=== PATIENT | female | born 1955 | race Caucasian/White ===

== ENCOUNTER 2023-02-13 13:29 | Emergency (ER) | payer MEDICARE, SELFPAY ==
[2023-02-13 13:41] VITALS: BP 146/95; PULSE 101; RESP 18; TEMP 36.6; O2SAT 97; BMI 26.0
--- NOTE | 2023-02-13 13:57 | ED_ITS ---
HPI - Neck Pain/Injury General: Chief Complaint: Neck Pain/Injury Stated Complaint: neck pain,previous neck surgeries Time Seen by Provider: 02/13/23 13:53 Source: patient Mode of arrival: ambulatory Limitations: no limitations History of Present Illness: Patient is a 67-year-old female presents to ED today with a complaint of neck pain. She states approximately 6 weeks ago she accidentally ran into some type of fence pole and struck her face. She reports since then she has had neck pain. She reports 2 previous neck surgeries. She feels like the pain in her neck is worse with rotation and extension. She is reporting paresthesias to bilateral hands but has no complaints of paresthesias to her forearm or upper arms. No headache/facial pain. No back pain. MD complaint: neck pain and neck injury Onset (ago): week(s) Place: home Severity: moderate Relieving factors: none Exacerbating factors: movement of neck Context: direct blow Associated symptoms: Reports other (Bilateral hand paresthesias); Denies dizziness, headache(s) or nausea Treatments prior to arrival: none, acetaminophen and ibuprofen Review of Systems Const: Denies: fever(s), chills, body aches, fatigue or malaise Eyes: Denies: change in vision or blurry vision Card: Denies: chest pain, palpitations, irregular heart rhythm, lightheadedness, syncope or dyspnea on exertion Resp: Denies: dyspnea, productive cough or pain on inspiration GI: Denies: abdominal pain, nausea, vomiting, heartburn or diarrhea : Denies: dysuria Musc: Reports: neck pain and muscle weakness (bilateral UEs); Denies: back pain, extremity pain, extremity swelling, joint pain, joint swelling, joint redness, joint warmth, joint stiffness, limited range of motion, muscle cramps or decrease in muscle mass Skin/Breast: Denies: rash Neuro: Reports: sensory changes (bilateral hands); Denies: headache(s), numbness in extremities, weakness in extremities, dizziness, vertigo, confusion, behavioral changes or seizure-like activity Physical Exam Const: COMMON NORMALS: no acute distress, average body habitus, patient oriented x3, no limitations, healthy appearing, alert and well nourished GENERAL APPEARANCE: cooperative HENMT: COMMON NORMALS: normocephalic and atraumatic HEAD & SCALP: normocephalic and atraumatic Neck/C-Spine: COMMON NORMALS: no lymphadenopathy, supple, no meningeal signs, no JVD, Thyroid normal and No carotid bruits GENERAL: Yes normal visual inspection THYROID: Thyroid normal CERVICAL SPINE: Yes pain with cervical ROM with rotation to the right, with rotation to the left and with extension, No Cervical spine tenderness, No step off deformity, No Paracervical muscle tenderness, No Paracervical spasm and No Trapezius muscle tenderness Chest: COMMONS NORMALS: normal inspection of the chest Resp: COMMON NORMALS: normal respiratory effort and clear to auscultation bilaterally AUSCULTATION: clear to auscultation bilaterally Cardio: COMMON NORMALS: no JVD, regular rate and regular rhythm RATE: regular rate RHYTHM: regular rhythm GI: COMMON NORMALS: Normal to inspection, nondistended, normoactive bowel sounds present, Soft to palpation, non-tender, No hepatosplenomegaly present and no masses PALPATION: Yes Soft to palpation and Yes No hepatosplenomegaly present : COMMON NORMALS: Yes no CVA tenderness BLADDER/KIDNEY EXAM: Yes no CVA tenderness Back/Pelvis: COMMON NORMALS: no CVA tenderness, thoracic and lumbar spine normal to inspection and no thoracic nor lumbar tenderness Extremity: COMMON NORMALS: normal to inspection, full ROM, capillary refill normal, no joint enlargement, no clubbing, cyanosis or edema, no calf tenderness and no pedal edema Neuro: COMMON NORMALS: patient oriented x3 and moves all extremities SENSORIUM/ORIENTATION: Yes alert MENINGEAL SIGNS: Yes no meningeal signs SPEECH: speech normal MOTOR EXAM: Abnormal motor strength present (4/5 across all myotomes in bilateral UEs) DEEP TENDON REFLEXES: Right triceps reflex intensity grade: 2+, Left triceps reflex intensity grade: 2+, Rt Biceps (C5, C6): 2+, Left biceps reflex intensity grade: 2+, Right brachioradialis reflex intensity grade: 2+ and Left brachioradialis reflex intensity grade: 2+ OTHER: Reporting paresthesias to bilateral hands including all digits and volar/dorsal surfaces however patient does report she is able to feel light/firm touches on exam Skin: COMMON NORMALS: no rashes or lesions noted GENERAL SKIN EXAM: no rashes or lesions noted Course Vital Signs: Vital signs: Vital Signs Temperature 97.8 F 02/13/23 13:41 Pulse Rate 101 H 12/15/23 13:41 Respiratory Rate 18 02/13/23 13:41 Blood Pressure 146/95 02/13/23 13:41 Pulse Oximetry 97 02/13/23 13:41 Oxygen Delivery Me thod Room Air 02/13/23 13:41 MDM - Neck Pain/Injury Medical Decision Making Patient here for neck pain following an injury approximately 6 weeks ago. She is reporting some paresthesias to her bilateral hands but none to the remainder of the upper extremity. CT scan of her cervical spine is negative for acute f racture or injury. Nothing to suggest possible cord compression. Will place her on steroids and have her follow up with PCP. States she has an upcoming appointment in a few weeks. Return to ED precautions given. All radiology interpretation(s) finalized by discharge Discharge Plan Discharge Patient Disposition: Home Clinical Impression: Neck pain Condition: Stable Prescriptions: New Medrol (Goldy) 4 mg tablets,dose pack See Rx Instructions .ROUTE .COMPLEX Qty: 21 0RF Rx Instructions: orally per package directions No Action triamcinolone acetonide 0.1 % ointment 1 applic topical TID meloxicam 15 mg tablet 15 mg PO DAILY Qty: 90 3RF cyanocobalamin (vitamin B-12) 1,000 mcg/mL solution 1,000 mcg IM .every other month Patient Comments: inject 1ml IM every 60 days (DME) insulin syringe-needle U-100 [[facility]] 1 mL 30 gauge x 5/16 syringe See Rx Instructions .Route Qty: 10 0RF Rx Instructions: As directed sertraline 50 mg tablet 50 mg PO DAILY Qty: 90 1RF lorazepam 1 mg tablet 1 mg PO TID PRN (Reason: anxiety) Qty: 90 5RF zolpidem 10 mg tablet 10 mg PO BEDTIME PRN (Reason: sleep) Discharge Orders: Discharge ED (Routine); Ordered 02/13/23 Ordered By: Maria Ines Gan Referrals: Adi Hall DO [Primary Care Provider] - Coding Level of Care Code ED Reception Interviewer for Gabyg Thea
--- NOTE | 2023-02-13 14:16 | CT_ITS ---
WS: [id number] CT cervical spine. Additional two-dimensional coronal and sagittal reconstruction was performed. 01/30 Clinical Data: pain, paresthesias Comparison: CT cervical spine 05/02/2011 DLP: 165.[address] scans at [facility] use at least one of these dose optimization techniques: automated e xposure control; mA and/or kV adjustment per patient size (includes targeted exams where dose is matc hed to clinical indication); or iterative reconstruction. Findings: There is an anterior cervical disc fusion at C5-C7 with corpectomy at the C6 vertebral body. There is an additional anterior cervical disc fusion at C4-C5 with obliteration of the disc space. No cyndi all fractures are seen. 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 There are no cyndi all fractures. There is loss of the normal lordotic curvature. There is no prevertebral soft tissue swelling. Spinous processes are in good alignment. Impression: 1. Negative for cervical spine fracture. 2. Stable anterior cervical disc fusions at C3-C4 and C5-C7. 3. Loss of normal lordotic curvature.
[2023-02-13 16:09] VITALS: BP 151/87; PULSE 106; O2SAT 97
== END 2023-02-13 16:12 | disposition home or self-care (01) ==
PROVIDERS: Emergency Provider Physician Assistant; PCP Family Medicine
DX: M54.2 Cervicalgia (principal); Z79.4 Long term (current) use of insulin
CPT/HCPCS: 72125; 99284

== ENCOUNTER 2023-03-06 11:58 | Outpatient (CLI) | payer MEDICARE, SELFPAY ==
--- NOTE | 2023-03-06 12:15 | MR_ITS ---
WS: [id number] MRI HEAD WITHOUT CONTRAST TECHNIQUE: Sagittal T1, T2 axial, T2 axial FLAIR, axial and coronal T1 images, axial susceptibility w eighted imaging, axial diffusion weighted images, and coronal T2 images were obtained. CLINICAL INFORMATION: F07.81 - Postconcussional syndrome COMPARISON: CT 2013 FINDINGS: No evidence of restricted diffusion to suggest acute ischemia. Ventricular system and basilar cistern s are patent. Mild small vessel changes. Mild parenchymal volume loss. Small vessel changes in the po ns. Tiny chronic lacunar infarct RIGHT strong radiata. Normal vascular flow voids at the skull base. No extra-axial fluid collections. Paranasal sinuses are well aerated. Mastoid air cells are well aera maricarmen. Normal posterior nasopharynx. No hemosiderin on the susceptibly weighted images. Normal optic chiasm and pituitary infundibulum. Mi ld symmetric atrophy temporal lobes and hippocampal formations. No other suspicious findings. IMPRESSION: 1. No evidence of restricted diffusion to suggest acute ischemia. 2. Mild small vessel changes. Mild parenchymal volume loss. 3. Small vessel changes in the christy. 4. No hemosiderin on susceptibly weighted images. 5. Mild symmetric atrophy temporal lobes and hippocampal formations.
== END 2023-03-06 11:59 | disposition home or self-care (01) ==
LOC: RAD 12:00
PROVIDERS: PCP Family Medicine; Visit Provider Family Medicine
DX: S09.90XA Unspecified injury of head, initial encounter (principal); X58.XXXA Exposure to other specified factors, initial encounter; F07.81 Postconcussional syndrome
CPT/HCPCS: 70551

== ENCOUNTER → 2023-04-09 07:47 | Outpatient (BNVA) | payer MEDICARE, SELFPAY | PROVIDERS: PCP Family Medicine; Visit Provider Psychiatry & Neurology Neurology | DX: G95.9 Disease of spinal cord, unspecified (principal); M54.2 Cervicalgia; R53.1 Weakness; Z98.1 Arthrodesis status; R68.89 Other general symptoms and signs; R20.0 Anesthesia of skin; R20.2 Paresthesia of skin; M62.838 Other muscle spasm | CPT/HCPCS: 99203 ==

== ENCOUNTER 2023-06-04 14:13 | Outpatient (RCR) | payer MEDICARE, SELFPAY | END 2023-06-30 23:59 | disposition home or self-care (01) | LOC: SPT 14:13 | PROVIDERS: PCP Family Medicine; Visit Provider Physician Assistant | DX: Z98.1 Arthrodesis status (principal) | CPT/HCPCS: 97110; 97161; G0283 ==

== ENCOUNTER 2023-07-01 06:00 | Outpatient (RCR) | payer MEDICARE, SELFPAY | END 2023-07-31 23:59 | disposition home or self-care (01) | LOC: SPT 06:00 | PROVIDERS: PCP Family Medicine; Visit Provider Physician Assistant | DX: Z98.1 Arthrodesis status (principal) | CPT/HCPCS: 97110 ==

== ENCOUNTER → 2023-07-13 12:51 | Outpatient (BNVA) | payer MEDICARE, SELFPAY | PROVIDERS: PCP Family Medicine; Visit Provider Family Medicine | DX: E53.8 Deficiency of other specified B group vitamins (principal); R27.8 Other lack of coordination; G95.9 Disease of spinal cord, unspecified; R53.1 Weakness; E03.9 Hypothyroidism, unspecified | CPT/HCPCS: 80053; 82607; 83735; 84443; 85025 ==

== ENCOUNTER → 2023-07-24 10:51 | Outpatient (BNVA) | payer MEDICARE, SELFPAY | PROVIDERS: PCP Family Medicine; Visit Provider Family Medicine | DX: D64.9 Anemia, unspecified (principal) | CPT/HCPCS: 80503; 82728; 83550; 85025; 85045 ==

== ENCOUNTER 2023-08-01 06:00 | Outpatient (RCR) | payer MEDICARE, SELFPAY | END 2023-08-24 23:59 | disposition home or self-care (01) | LOC: SPT 06:00 | PROVIDERS: PCP Family Medicine; Visit Provider Physician Assistant | DX: Z98.1 Arthrodesis status (principal) | CPT/HCPCS: 97110 ==

== ENCOUNTER 2023-08-05 13:34 | Outpatient (CLI) | payer MEDICARE, SELFPAY ==
--- NOTE | 2023-08-05 13:45 | MR_ITS ---
WS: [id number] MRI HEAD WITH CONTRAST TECHNIQUE: Sagittal T1, T2 axial, T2 axial FLAIR, axial susceptibility weighted imaging, axial diffus ion weighted images, and coronal T2 images were obtained. Pre and post-T1 axial and post T1 coronal i mages. ADC and FSPGR images. CLINICAL INFORMATION: R27.8 - Other lack of coordination COMPARISON: MRI 03/06/2023 FINDINGS: No evidence of restricted diffusion to suggest acute ischemia. Ventricular system and basal cisterns are patent. Mild small vessel changes. Mild parenchymal volume loss. Small vessel changes in the christy . No hemosiderin on the susceptibly weighted images. Normal optic chiasm and pituitary infundibulum. Small cysts in the RIGHT parahippocampal gyrus unchanged from previous compatible with incidental hip pocampal sulcal remnant cysts. Normal vascular flow voids at the skull base. No extra-axial fluid collections. No evidence of mass o r mass effect. Normal posterior nasopharynx. Paranasal sinuses are well aerated. Mild symmetric atrophy temporal lobes and hippocampal formations. No abnormal gadolinium enhancement. Normal dural venous sinuses. Suggestion of a small RIGHT MCA trifurcation aneurysm measuring 3.5 mm. This can be further evaluated with CTA or MRA. MR/MR head wo/w con [id number] IMPRESSION: 1. No evidence of restricted diffusion to suggest acute ischemia. 2. Mild small vessel changes with mild parenchymal volume loss. 3. Small vessel changes in the christy. 4. Suggestion of a possible small RIGHT MCA trifurcation aneurysm measuring 3. 5 mm. This could be further evaluated with CTA or MRA 5. 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 6. No abnormal gadolinium enhancement. 7. No hemosiderin on the susceptibly weighted images. 8. Overall no significant changes compared to previous.
== END 2023-08-05 13:35 | disposition home or self-care (01) ==
LOC: RAD 13:34
PROVIDERS: PCP Family Medicine; Visit Provider Family Medicine
DX: R27.8 Other lack of coordination (principal); R53.1 Weakness; G93.0 Cerebral cysts
CPT/HCPCS: 70553; A9577

== ENCOUNTER → 2023-08-18 13:56 | Outpatient (CLI) | payer MEDICARE, SELFPAY ==
--- NOTE | 2023-08-18 14:00 | MR_ITS ---
WS: [id number] MRA HEAD TECHNIQUE: Axial 3-D TOF images obtained with axial images and axial, sagittal, and coronal 2-D refor matted images. CLINICAL INFORMATION: right mca suggestion of aneursym on recent MRI of head COMPARISON: MRI 08/05/2023 FINDINGS: RIGHT MCA trifurcation aneurysm directed laterally and superiorly measuring approximately 4.0 mm. Rec ommend neurosurgery consultation. Dominant distal LEFT vertebral artery. Smaller but patent distal RIGHT vertebral artery. Basilar mirta ry is patent. Normal vascularity to the [employer] territory bilaterally. Both ICAs are patent at the skull base. Patent anterior communicating artery. Small RIGHT A1 segment. Normal vascularity to the FRANC[place] territory. Both ICAs are patent at the skull base. Normal vascularity to the MCA territories bilaterally. No evidence of proximal flow-limiting stenosis. MR/MR angio head wo con [id number] IMPRESSION: 1. 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 Recommend neurosurgery co nsultation. 2. No evidence of proximal flow-limiting stenosis.
== END | disposition home or self-care (01) ==
LOC: RAD 13:57
PROVIDERS: PCP Family Medicine; Visit Provider Family Medicine
DX: I67.1 Cerebral aneurysm, nonruptured (principal)
CPT/HCPCS: 70544

== ENCOUNTER 2023-10-24 16:17 | Emergency (ER) | payer MEDICARE, SELFPAY ==
[2023-10-24 16:24] VITALS: BP 168/76; PULSE 67; RESP 16; TEMP 36.7; O2SAT 98
--- NOTE | 2023-10-24 16:59 | W.ED.NECK ---
Documented by User: RG Robertson 10/24/23 19:55 HPI - Neck Pain/Injury General: Chief Complaint: Neck Pain/Injury Stated Complaint: Severe neck pain, hands and arms Time Seen by Provider: 10/24/23 16:34 Source: patient Mode of arrival: ambulatory Limitations: no limitations History of Present Illness: Patient presents emergency department today for evaluation treatment of acute worsening of chronic neck pain and cervical radiculopathy. Patient states that several days ago she was [place] [employer] [place] quite a bit of swimming. She admits it is more physical activity than she is used to. She noticed later that day stiffening of the neck which acutely worsened the next day and has continued since that time. Patient has chronic neuropathy and has had multiple neck surgeries including fusion of C3 and C4 as well as C5-C7. Patient has also had a corpectomy at C6 in the past. Patient's chart review shows that she has been seen in the past for acute worsening of chronic neck pain here in the emergency department. She has had multiple rounds of imaging on her neck with her most recent imaging being a couple weeks ago where she had x-rays taken. Since April, patient has been followed by Dr. Vale with neurosurgery at [facility] in [place]. 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 She reports undergoing an angio of her brain recently but, they did not repair the aneurysm. She is supposed to have an appointment next month to discuss her options . Patient states that from a cervical spine perspective, she was told a few weeks ago that she was released and could follow-up as needed. Patient has pain medication at home including narcotics, NSAID, muscle relaxer, and Lyrica. She states that her blood pressure drops too low when she takes muscle relaxer but, did take 1 today for her pain but did not notice any improvement. She admits to having Ativan but does not hardly take it. She admits that there is a component of increased anxiety over the last few days due to her pain but, did not take her Ativan for her symptoms. Patient states she is having headache but, states it is originating from the musculature in her neck and wrapping up the back of her head to the front. Patient does have a medical background and states her headache does not feel any way related to aneurysmal pains or concerns. Patient has not been running fever. She has not been vomiting. Patient drove herself from home to the emergency department and ambulated independently inside. Related Data Home Medications Medication Instructions Recorded Confirmed triamcinolone acetonide 0.1 % 1 applic topical TID 11/28/21 06/30/23 topical ointment Previous Rx's Medication Instructions Recorded insulin syringe-needle U-100 1 mL #10 ea 02/11/22 30 gauge x 5/16 ([facility] Syringes) meloxicam 15 mg tablet 15 mg PO DAILY #90 tabs 02/11/22 sertraline 50 mg tablet 50 mg PO DAILY anxiety/depression 01/07/23 #90 tabs tizanidine 6 mg capsule 6 mg PO TID PRN muscle spasticity 04/09/23 #180 caps cyanocobalamin (vitamin B-12) See Rx Instructions IM ONCE #10 mL 05/29/23 1,000 mcg/mL injection solution needles/syringes for b12 injection #10 ea 05/29/23 hydrocodone 5 mg-acetaminophen 325 1 tab PO Q4H PRN pain 10 days #30 06/22/23 mg tablet tabs pregabalin 75 mg capsule (Lyrica) 75 mg PO BID neuropathy pain #60 07/20/23 caps lorazepam 1 mg tablet 1 mg PO TID PRN anxiety #90 tabs 07/22/23 ferrous sulfate 324 mg (65 mg 324 mg PO DAILY anemia #30 tabs 09/25/23 iron) tablet,delayed release zolpidem 10 mg tablet 10 mg PO BEDTIME PRN sleep #30 tabs 10/19/23 methylprednisolone 4 mg tablets in See Rx Instructions PO .COMPLEX 10/24/23 a dose pack #21 ea Allergies Allergy/AdvReac Type Severity Reaction Status Date / Time No Known Allergies Allergy Verified 10/24/23 16:29 Review of Systems General: Reports: 10 or more systems reviewed and unremarkable except in HPI and below PFSH ED PFSH: Social History Smoking and tobacco/nicotine status: former use of tobacco/nicotine Alcohol intake: never Substance/Drug Use: never Physical Exam Const: COMMON NORMALS: patient oriented x3 and alert OTHER: Patient presents anxious, borderline tearful and obviously uncomfortable. HENMT: COMMON NORMALS: normocephalic, atraumatic and hearing grossly normal bilaterally HEAD & SCALP: normocephalic and atraumatic Eye: COMMON NORMALS: Equal, round and reactive pupils present, EOMs intact bilaterally and conjunctivae normal CONJUNCTIVA: Yes conjunctivae normal PUPIL: Yes Equal, round and reactive pupils present Neck/C-Spine: OTHER: Patient has significant muscular stiffening of the paravertebral musculature in the cervical vertebral region with bilateral superior shoulder tension. Reproducible pain with palpation to this musculature. Patient has a well-healed surgical incision in the midline cervical region. Lymph: LYMPHATIC: no lymphadenopathy noted Resp: COMMON NORMALS: normal respiratory effort, No retractions and No use of accessory muscles Cardio: COMMON NORMALS: regular rate RATE: regular rate Back/Pelvis: OTHER: Demonstrates forward flexion of thoracic and lumbar vertebrae. Nontender to midline palpation of the lumbar vertebrae with some tenderness developing in the musculature around T2/T3 and extending up the paravertebral musculature of the cervical vertebrae. Extremity: NARRATIVE EXTREMITY EXAM: Patient with limited range of motion at the shoulders bilaterally. Unable to raise her hands above her head. Brisk cap refill. Patient still able to grasp and hold items. Neuro: COMMON NORMALS: patient oriented x3 SENSORIUM/ORIENTATION: Yes alert OTHER: Dulled sensations in fingers bilaterally. Psych: COMMON NORMALS: mental status grossly normal, Normal thought process present, cooperative and normal affect THOUGHT PROCESS: Normal thought process present Skin: COMMON NORMALS: no rashes or lesions noted and turgor normal GENERAL SKIN EXAM: no rashes or lesions noted and turgor normal Course Vital Signs: Vital signs: Vital Signs Temperature 98.0 F 10/24/23 18:40 Pulse Rate 61 10/24/23 18:40 Respiratory Rate 16 10/24/23 18:40 Blood Pressure 146/74 10/24/23 18:40 Pulse Oximetry 99 10/24/23 18:40 Oxygen Delivery Me thod Room Air 10/24/23 16:24 MDM - Neck Pain/Injury Medical Decision Making Patient presents emergency department for evaluation treatment of acute worsening of chronic neck pain and cervical radiculopathy. Patient was complaining of headache upon arrival and, did have concerns regarding her recent finding of aneurysm but, does appear she has been seen and evaluated by neurology where the decision was made to not fix it. I did discuss the case with Dr. Thompson but, with the patient's evaluation, do think that this is a combination of an acute flareup of her chronic neck issues but, also, acute anxiety. Patient agreed that she has been struggling with her anxiety especially in the last couple of days due to her worsening pain but, states she has not been taking her medications. We discussed the various medications the patient uses for her symptoms but, states that she does not like to take a lot of her medications and typically sticks to just Tylenol. Patient drove herself here to the ER today but, after discussion, was willing to call a friend to come get her so we could administer medication to her through the emergency department. I did offer to keep the patient here in the emergency department for observation for a while to make sure her symptoms were improving with treatment however, she wishes to be discharged home with her friend. It was noticeable to the nursing staff that the patient seemed improved and much more calm with the Ativan on board. Prescription sent to the pharmacy for the patient to use to try and help with her acute on chronic symptoms but, would also encouraged her to start taking her Ativan more regularly in the next couple of days to help not only with her anxiety but to also help provide relief of muscle spasming. I requested she have a follow-up with her primary care doctor or, to notify her neurologist. As the patient indicated her awareness of the aneurysm and indicated she knows aneurysmal symptoms, she was told to return to the emergency department for any severe worsening or change of her headache, loss of consciousness, vomiting, or fevers. She verbalized her understanding and agreement to treatment plan. Differential Diagnosis Likely disc disorder of cervical region, cervical radiculopathy and strain of neck muscle; Unlikely whiplash injury to neck, closed subluxation of cervical spine, fracture of cervical spine without lesion of spinal cord or vertebral artery dissection No radiology studies performed this visit Discharge Plan Discharge Patient Disposition: Home Clinical Impression: Strain of neck muscle, Cervical radiculopathy, Cervical paraspinous muscle spasm, Paresthesia of both hands Condition: Stable Prescriptions: New methylprednisolone 4 mg tablets,dose pack See Rx Instructions PO .COMPLEX Qty: 21 0RF Rx Instructions: orally per package directions No Action triamcinolone acetonide 0.1 % ointment 1 applic topical TID hydrocodone-acetaminophen 5-325 mg tablet 1 tab PO Q4H PRN (Reason: pain) 10 Days Qty: 30 0RF meloxicam 15 mg tablet 15 mg PO DAILY Qty: 90 3RF (DME) insulin syringe-needle U-100 [[facility] Syringes] 1 mL 30 gauge x 5/16 syringe See Rx Instructions .Route Qty: 10 0RF Rx Instructions: As directed tizanidine 6 mg capsule 6 mg PO TID PRN (Reason: muscle spasticity) Qty: 180 5RF sertraline 50 mg tablet 50 mg PO DAILY Qty: 90 1RF cyanocobalamin (vitamin B-12) 1,000 mcg/mL solution See Rx Instructions IM ONCE Qty: 10 1RF Rx Instructions: inject 1000 units weekly x 4 then monthly intramuscularly once; (DME) needles/syringes for b12 injection 27 See Rx Instructions .Route .MEDSUPPLY Qty: 10 0RF Rx Instructions: As directed pregabalin [Lyrica] 75 mg capsule 75 mg PO BID Qty: 60 3RF lorazepam 1 mg tablet 1 mg PO TID PRN (Reason: anxiety) Qty: 90 5RF ferrous sulfate 324 mg (65 mg iron) tablet,delayed release (DR/EC) 324 mg PO DAILY Qty: 30 3RF zolpidem 10 mg tablet 10 mg PO BEDTIME PRN (Reason: sleep) Qty: 30 0RF Discharge Orders: Discharge ED (Routine); Ordered 10/24/23 Ordered By: Lani Conde Referrals: Adi Hall DO [Primary Care Provider] - Discharge Diet: Usual diet Discharge Activity: Increase activity as tolerated Patient Instructions: Cervical Strain (ED), Cervical Radiculopathy (ED), Opioid Safety, Pain Management Activity Restrictions/Additional Instructions: Continue to take your chronic medications as prescribed. I am also giving you an extra boost of steroids for the next week or so to hopefully help relax her muscles. You do have a prescription for 6 mg of tizanidine. As you indicated this tends to drop your blood pressure, there are lower doses of this medication which you may wish to talk to your doctor about trying to see if you get pain relief but does not affect your blood pressure. I encourage you over the next couple of days to start back on your Ativan. It will not only help with your anxiety but, also helps with muscle relaxation. I recommend over the next couple of days doing your best to simply relax without engaging in any extra activity to allow your body and mind to rest. Continue to monitor your symptoms of headache for any change. As I know you know what to watch for, if you have any concerns regarding headache and your aneurysm you are always more than welcome to return to the emergency department. Coding Level of Care Code ED Technology Sales Representative for [employer] Documented by User: Speedy Thompson, 10/24/23 21:04 HPI - Neck Pain/Injury General: Chief Complaint: Neck Pain/Injury Stated Complaint: Severe neck pain, hands and arms Time Seen by Provider: 10/24/23 16:34 Related Data Home Medications Medication Instructions Recorded Confirmed triamcinolone acetonide 0.1 % 1 applic topical TID 11/28/21 06/30/23 topical ointment Previous Rx's Medication Instructions Recorded insulin syringe-needle U-100 1 mL #10 ea 02/11/22 30 gauge x 5/16 ([facility] Syringes) meloxicam 15 mg tablet 15 mg PO DAILY #90 tabs 02/11/22 sertraline 50 mg tablet 50 mg PO DAILY anxiety/depression 01/07/23 #90 tabs tizanidine 6 mg capsule 6 mg PO TID PRN muscle spasticity 04/09/23 #180 caps cyanocobalamin (vitamin B-12) See Rx Instructions IM ONCE #10 mL 05/29/23 1,000 mcg/mL injection solution needles/syringes for b12 injection #10 ea 05/29/23 hydrocodone 5 mg-acetaminophen 325 1 tab PO Q4H PRN pain 10 days #30 06/22/23 mg tablet tabs pregabalin 75 mg capsule (Lyrica) 75 mg PO BID neuropathy pain #60 07/20/23 caps lorazepam 1 mg tablet 1 mg PO TID PRN anxiety #90 tabs 07/22/23 ferrous sulfate 324 mg (65 mg 324 mg PO DAILY anemia #30 tabs 09/25/23 iron) tablet,delayed release zolpidem 10 mg tablet 10 mg PO BEDTIME PRN sleep #30 tabs 10/19/23 methylprednisolone 4 mg tablets in See Rx Instructions PO .COMPLEX 10/24/23 a dose pack #21 ea Allergies Allergy/AdvReac Type Severity Reaction Status Date / Time No Known Allergies Allergy Verified 10/24/23 16:29 [facility] ED PFSH: Social History Smoking and tobacco/nicotine status: former use of tobacco/nicotine Alcohol intake: never Substance/Drug Use: never Course Vital Signs: Vital signs: Vital Signs Temperature 98.0 F 10/24/23 18:40 Pulse Rate 61 10/24/23 18:40 Respiratory Rate 16 10/24/23 18:40 Blood Pressure 146/74 10/24/23 18:40 Pulse Oximetry 99 10/24/23 18:40 Oxygen Delivery Me thod Room Air 10/24/23 16:24 MDM - Neck Pain/Injury Medical Decision Making Patient presents emergency department for evaluation treatment of acute worsening of chronic neck pain and cervical radiculopathy. Patient was complaining of headache upon arrival and, did have concerns regarding her recent finding of aneurysm but, does appear she has been seen and evaluated by neurology where the decision was made to not fix it. I did discuss the case with Dr. Thompson but, with the patient's evaluation, do think that this is a combination of an acute flareup of her chronic neck issues but, also, acute anxiety. Patient agreed that she has been struggling with her anxiety especially in the last couple of days due to her worsening pain but, states she has not been taking her medications. We discussed the various medications the patient uses for her symptoms but, states that she does not like to take a lot of her medications and typically sticks to just Tylenol. Patient drove herself here to the ER today but, after discussion, was willing to call a friend to come get her so we could administer medication to her through the emergency department. I did offer to keep the patient here in the emergency department for observation for a while to make sure her symptoms were improving with treatment however, she wishes to be discharged home with her friend. It was noticeable to the nursing staff that the patient seemed improved and much more calm with the Ativan on board. Prescription sent to the pharmacy for the patient to use to try and help with her acute on chronic symptoms but, would also encouraged her to start taking her Ativan more regularly in the next couple of days to help not only with her anxiety but to also help provide relief of muscle spasming. I requested she have a follow-up with her primary care doctor or, to notify her neurologist. As the patient indicated her awareness of the aneurysm and indicated she knows aneurysmal symptoms, she was told to return to the emergency department for any severe worsening or change of her headache, loss of consciousness, vomiting, or fevers. She verbalized her understanding and agreement to treatment plan. This patient was originally seen by Mrs. Elton PA-C.? I agree with her history, evaluation, and treatment. Discharge Plan Discharge Patient Disposition: Home Clinical Impression: Strain of neck muscle, Cervical radiculopathy, Cervical paraspinous muscle spasm, Paresthesia of both hands Condition: Stable Prescriptions: New methylprednisolone 4 mg tablets,dose pack See Rx Instructions PO .COMPLEX Qty: 21 0RF Rx Instructions: orally per package directions No Action triamcinolone acetonide 0.1 % ointment 1 applic topical TID hydrocodone-acetaminophen 5-325 mg tablet 1 tab PO Q4H PRN (Reason: pain) 10 Days Qty: 30 0RF meloxicam 15 mg tablet 15 mg PO DAILY Qty: 90 3RF (DME) insulin syringe-needle U-100 [[facility] Syringes] 1 mL 30 gauge x 5/16 syringe See Rx Instructions .Route Qty: 10 0RF Rx Instructions: As directed tizanidine 6 mg capsule 6 mg PO TID PRN (Reason: muscle spasticity) Qty: 180 5RF sertraline 50 mg tablet 50 mg PO DAILY Qty: 90 1RF cyanocobalamin (vitamin B-12) 1,000 mcg/mL solution See Rx Instructions IM ONCE Qty: 10 1RF Rx Instructions: inject 1000 units weekly x 4 then monthly intramuscularly once; (DME) needles/syringes for b12 injection 27 See Rx Instructions .Route .MEDSUPPLY Qty: 10 0RF Rx Instructions: As directed pregabalin [Lyrica] 75 mg capsule 75 mg PO BID Qty: 60 3RF lorazepam 1 mg tablet 1 mg PO TID PRN (Reason: anxiety) Qty: 90 5RF ferrous sulfate 324 mg (65 mg iron) tablet,delayed release (DR/EC) 324 mg PO DAILY Qty: 30 3RF zolpidem 10 mg tablet 10 mg PO BEDTIME PRN (Reason: sleep) Qty: 30 0RF Discharge Orders: Discharge ED (Routine); Ordered 10/24/23 Ordered By: Lani Conde Referrals: Adi Hall, DO [Primary Care Provider] - Discharge Diet: Usual diet Discharge Activity: Increase activity as tolerated Patient Instructions: Cervical Strain (ED), Cervical Radiculopathy (ED), Opioid Safety, Pain Management Activity Restrictions/Additional Instructions: Continue to take your chronic medications as prescribed. I am also giving you an extra boost of steroids for the next week or so to hopefully help relax her muscles. You do have a prescription for 6 mg of tizanidine. As you indicated this tends to drop your blood pressure, there are lower doses of this medication which you may wish to talk to your doctor about trying to see if you get pain relief but does not affect your blood pressure. I encourage you over the next couple of days to start back on your Ativan. It will not only help with your anxiety but, also helps with muscle relaxation. I recommend over the next couple of days doing your best to simply relax without engaging in any extra activity to allow your body and mind to rest. Continue to monitor your symptoms of headache for any change. As I know you know what to watch for, if you have any concerns regarding headache and your aneurysm you are always more than welcome to return to the emergency department. Coding Level of Care Code ED Technology Sales Representative for Lorna Sidhu
[2023-10-24] MEDS: LORazepam 1 mg Tablet PO (17:55)
[2023-10-24] MEDS: ketorolac 30 mg/mL INJ IM (17:55)
[2023-10-24] MEDS: dexamethasone 10 mg/mL INJ IM (17:55)
[2023-10-24 18:40] VITALS: BP 146/74; PULSE 61; RESP 16; TEMP 36.7; O2SAT 99
== END 2023-10-24 18:30 | disposition home or self-care (01) ==
PROVIDERS: Emergency Provider Physician Assistant; PCP Family Medicine
DX: S16.1XXA Strain of muscle, fascia and tendon at neck level, initial encounter (principal); M54.12 Radiculopathy, cervical region; M62.838 Other muscle spasm; R20.2 Paresthesia of skin; Z79.4 Long term (current) use of insulin; Z87.891 Personal history of nicotine dependence; X50.9XXA Other and unspecified overexertion or strenuous movements or postures, initial encounter; Y93.11 Activity, swimming; Y92.838 Other recreation area as the place of occurrence of the external cause
CPT/HCPCS: 96372; 99284; J1100; J1885

== ENCOUNTER 2024-04-26 11:51 | Outpatient (CLI) | payer MEDICARE, SELFPAY ==
--- NOTE | 2024-04-26 11:59 | MR_ITS ---
WS: [id number] MRA ANGIOGRAPHY [place] OF [place] HISTORY: BRAIN ANEURYSM COMPARISON: 08/18/2023 TECHNIQUE: 3-D MR angiography is performed of the [place] of [place]. All images are reviewed including source images. Small caliber distal RIGHT vertebral artery but it is patent and intact. Normal LEFT vertebral artery. Normal basilar artery. Normal vascularity to the posterior cerebral artery territory. Reidentified is the 4 mm aneurysm at the RIGHT MCA trifurcation directed laterally. No increase in size. No additional or new aneurysms are identified. A 1 and A2 segments are normal. Anterior communicating artery is normal. MR/MR angio head wo con [id number] IMPRESSION: 1. Stable 4 mm RIGHT MCA trifurcation aneurysm. No change since 08/18/2023. 2. No additional aneurysms or stenosis.
== END 2024-04-26 11:52 | disposition home or self-care (01) ==
PROVIDERS: PCP Family Medicine; Visit Provider Student in an Organized Health Care Education/Training Program
DX: I67.1 Cerebral aneurysm, nonruptured (principal)
CPT/HCPCS: 70544

== ENCOUNTER → 2024-08-08 16:09 | Outpatient (BNVA) | payer MEDICARE, SELFPAY | PROVIDERS: PCP Family Medicine; Visit Provider Obstetrics & Gynecology | DX: N39.3 Stress incontinence (female) (male) (principal); R30.0 Dysuria | CPT/HCPCS: 81000 ==

== ENCOUNTER 2024-11-20 10:17 | Emergency (ER) | payer MEDICARE, SELFPAY ==
--- OUTSIDE RECORDS SUMMARY | 2024-11-20 10:24 | XMS_ITS | Encounter Summary ---
Author Organization [facility] Address [address] [place] [address] Care Team Providers Care K [employer] Officer Name Role Phone Adi Hall DO Primary Care Provider [phone] Encounter Details Date Type Department Care Team (Late st Contact Info) Description 11/15/2024 External Device Data [facility] ABSTRACTION Provider, Abstract NO ADDRESS ON FILE Social History Tobacco Use Types Packs/Day Years Used Date Smoking Tobacco: Never Smokeless Tobacco: Never Alcohol Use Standard Drinks/Week Comments Not Asked 0 (1 standard drink = 0.6 oz pur e alcohol) Comments No Sex and Gender Information Value Date Recorded Sex Assigned at Not on file 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 Gender Identity Not on file Sexual Orientation Not on file documented as of this encounter Plan of Treatment Upcoming Encounters Date Type Department Care Team (Late st Contact Info) Description 05/23/2025 11:40 AM CDT Telephone Check Up [facility] Neurosurgery [address] [place] [address] Giovanni Webster MD [address] [place] [address] documented as of this encounter Visit Diagnoses Not on filedocumented in this encounter Care Teams K [employer] Police Officer Relationship Specialty Start Date End Date Adi Hall DO [address] [place] [address] PCP - General Family Practice 07/04/13 documented as of this encounter
--- OUTSIDE RECORDS SUMMARY | 2024-11-20 10:24 | XMS_ITS | Clinical Summary ---
Author Organization [facility] Address [address] Bartonn: [place] [address] Care Team Providers Care Case Resolution Specialist Name Role Phone RafaelAdi Primary Care Provider [phone] Allergies No known active allergies Medications zolpidem (AMBIEN) 10 mg tablet Take 10 mg by mouth nightly as needed. Active triamcinolone acetonide (KENALOG) 0.1 % Ointment Apply to affected area 3 times daily as needed. 3 Active sertraline (ZOLOFT) 50 mg tablet Take 50 mg by mouth daily. Active pregabalin (LYRICA) 75 mg Capsule 75 mg every 12 hours. 4 Active LORazepam (ATIVAN) 1 mg tablet Take 1 mg by mouth 3 times daily as needed for Anxiety. Active ferrous sulfate 324 mg (65 mg iron) Tablet, Delayed Release (E.C.) Take 324 mg by mouth daily. 4 Active cyanocobalamin (VITAMIN B-12) 1,000 mcg/mL Solution Inject 1,000 mcg by intramuscular injection every 60 days. 3 Active meloxicam (MOBIC) 15 mg tablet Take 1 Tablet by mouth daily. 2 Active Active Problems Problem Noted Date Diagnosed Date Chest pain 06/27/2013 Fatigue 06/27/2013 Encounters Date Type Department Care Team Description 11/15/2024 External Device Data STL ABSTRACTION Provider, Abstract 11/08/2024 External Device Data STL ABSTRACTION Provider, Abstract 10/05/2024 External Device Data STL ABSTRACTION Provider, Abstract 10/04/2024 External Device Data STL ABSTRACTION Provider, Abstract 09/14/2024 External Device Data STL ABSTRACTION Provider, Abstract 09/14/2024 External Device Data STL ABSTRACTION Provider, Abstract 09/14/2024 External Device Data STL ABSTRACTION Provider, Abstract from Last 3 Months Social History Tobacco Use Types Packs/Day Years Used Date Smoking Tobacco: Never Smokeless Tobacco: Never Alcohol Use Standard Drinks/Week Comments Not Asked 0 (1 standard drink = 0.6 oz pur e alcohol) Comments No Sex and Gender Information Value Date Recorded Sex Assigned at Not on file Legal Sex Female 10:42 AM PATIENT ATTENDANT Gender Identity Not on file Sexual Orientation Not on file Last Filed Vital Signs Vital Sign Reading Time Taken Comments Blood Pressure 127/74 10/08/2023 12:10 PM CDT Pulse 71 10/08/2023 12:10 PM CDT Temperature 37 C (98.6 F) 10/08/2023 12:10 PM CDT Respiratory Rate 14 10/08/2023 11:40 AM CDT Oxygen Saturation 96% 10/08/2023 11:40 AM CDT Inhaled Oxygen Concentration - - Weight 54.4 kg (120 lb) 10/08/2023 8:03 AM CDT Height 154.9 cm (5' 1 ) 10/08/2023 8:03 AM CDT Body Mass Index 22.67 10/08/2023 8:03 AM CDT Plan of Treatment Upcoming Encounters Date Type Department Care Team (Late st Contact Info) Description 05/23/2025 11:40 AM CDT Telephone Check Up [facility] Neuro[facility] [address] [place] [address] Giovanni Webster MD [address] [place] [address] Health Maintenance Due Date Last Done Comments COLORECTAL SCREENING 2001 Colorectal Cancer Screening 2001 FIT-DNA Q 3 years 2001 FIT/FOBT Q 1 year 2001 Flex Sig/CT Colonography Q 5 years 2001 PNEUMOCOCCAL VACCINE 50+ YEA RS (1 of 1 - PCV) 2006 ZOSTER VACCINE (1 of 2) 2006 OSTEOPOROSIS SCREENING 2021 BREAST CANCER SCREENING 11/20/2021 11/21/19, 11/20/2020, 11/20/2020, Additional history exists INFLUENZA VACCINE (#1) 2024 DTAP/TDAP/TD VACCINES (2 - T d or Tdap) 12/18/2027 12/17/2017 RSV VACCINE (60+ or ) (1 - 1-dose 75+ series) 2031 Medical Devices Implanted Type Area Sludge Filtration Operator Device Identifier Shelf Expiration Date Model / Serial / Lot Dev Vasc Closure Vascade 5fr [id number] - [id number] Implanted:Qty: 1 on 10/08/2023 by Giovanni Webster MD at [facility] Closure Device Right: [employer]in [employer] [id number] 07/08/2025 [id number] / / [id number] Insurance [facility] [id number] Care Teams Case Resolution Specialist Relationship Specialty Start Date End Date Adi Hall DO [address] [place] [address] PCP - General Family Practice 07/04/13
--- OUTSIDE RECORDS SUMMARY | 2024-11-20 10:24 | XMS_ITS ---
Author Organization [facility] Care Team Providers Care Surgical Asst Name Role Phone Laurita Wellington Unavailable Unavailable Karis Floyd Unavailable Unavailable Allergies and adverse reactions Code CodeSystem Substance Reaction Severity StartDate Concern Status 7804 RXNORM OxyCONTIN Unknown 05/08/2023 active Kefzol Unknown 05/08/2023 active 2670 RXNORM Codeine Unknown 05/08/2023 active Care Team Name Role Address Phone Organization Dates Laurita Wellington [address], [place], [address], [facility] (Office): [facility] 05/08/2023 - 05/20/2023 Karis Floyd [facility] [facility] 05/08/2023 - 05/20/2023 Immunizations Immunization Status Vaccine Details Vaccine Code CodeSystem Date Notes TB 2 Step Mantoux Skin Test completed tuberculin skin test; unspecified formulation lotNumber: [id number] expiry: 05/30/2024 Given 0.1 ml Right Forearm intradermally Step 2 of Multi-step with next step required 98 CVX created date: 05/19/2023 consent date: 05/18/2023 administere d date: 05/19/2023 TB 2 Step Mantoux Skin Test completed tuberculin skin test; unspecified formulation lotNumber: [id number] expiry: 04/29/2024 Mfg: Tuberculin Purified Protein Derivative (Mantoux) Given 0.1 mg Left Forearm subcutaneously Step 1 of Multi-step with next step required 98 CVX created date: 05/08/2023 consent date: 05/08/2023 administere d date: 05/08/2023 Mental Status Section Date Assessment Total Score Description 05/20/2023 BIMS 15 cognitively int act CAM 0 No delirium ind icated PHQ-9 02 minimal depress ion 05/15/2023 BIMS 13 cognitively int act CAM 0 No delirium ind icated PHQ-9 24 severe depressi on Problems Problem # Description Date of onset Resolved Date Code CodeSystem Concern Status 1 ANXIETY DISORDER, UNSPECIFIED 05/08/[address] active 2 ARTHRODESIS STATUS 05/08/[address] active 3 DEPRESSION, UNSPECIFIED 05/08/[address] active 4 GASTRO-ESOPHAGEAL REFLUX DISEASE WITHOUT ESOPHAGITIS 05/08/[address] active 5 INSOMNIA, UNSPECIFIED 05/08/[address] active 6 OTHER SPONDYLOSIS WITH MYELOPATHY, CERVICAL REGION 05/08/[address] active Reason for Referral No Reasons for Referral Entered Social History Social History Observation Description Start Date End Date Code Code System Current Smoking Status Tobacco smoking consumption unknown 954939946 SNOMED CT Sex Assigned At Female 1955 39161-4 [facility] Gender Identity Sexual Orientation Vital Signs Code Code System Vitals Name Values and Units Timing Information 47686-6 LOINC Pain Level Value=0.0 05/20/2023 8462-4 LOINC Blood Pressure-Diastolic Value=65 Un its=mmHg 05/20/2023 8480-6 LOINC Blood Pressure-Systolic Gpazh=687 Un its=mmHg 05/20/2023 87329-6 [facility] O2 % BldC Oximetry Value=96.0 Units= % 05/20/2023 9279-1 LOINC Respiratory Rate Value=16.0 Units=/m in 05/20/2023 8310-5 LOINC Body Temperature Value=98.5 Units= F 05/20/2023 8867-4 [facility] Heart rate Value=89.0 Units=/min 26019-2 [facility] Weight Razmz=093.0 Units=Lbs 2339-0 [facility] Blood Sugar Zpmhq=107.0 Units=mg/dL 05/11/2023 8302-2 [facility] Height Value=62.0 Units=Inches 05/08/2023
[2024-11-20 10:42] VITALS: BP 159/77; PULSE 70; RESP 18; TEMP 36.7; O2SAT 100; BMI 22.6
--- NOTE | 2024-11-20 10:47 | W.ED.BACK ---
HPI - Back Pain/Injury General: Chief Complaint: Back Pain/Injury Stated Complaint: lower back pain, L hip pain Time Seen by Provider: 11/20/24 10:19 Related Data Home Medications ?Medication ?Instructions ?Recorded ?Confirmed triamcinolone acetonide 0.1 % 1 applic topical TID 11/28/21 08/08/24 topical ointment Previous Rx's ?Medication ?Instructions ?Recorded insulin syringe-needle U-100 1 mL #10 ea 02/11/22 30 gauge x 5/16 (Advocate Syringes) cyanocobalamin (vitamin B-12) See Rx Instructions IM ONCE #10 mL 05/29/23 1,000 mcg/mL injection solution needles/syringes for b12 injection #10 ea 05/29/23 ferrous sulfate 324 mg (65 mg 324 mg PO DAILY anemia #30 tabs 09/25/23 iron) tablet,delayed release celecoxib 200 mg capsule (Celebrex) 200 mg PO DAILY somatic 01/04/24 inflammatory pain #30 caps lorazepam 1 mg tablet 1 mg PO TID PRN anxiety #90 tabs 06/06/24 solifenacin 10 mg tablet (Vesicare) 10 mg PO DAILY #30 tabs 08/08/24 sertraline 50 mg tablet 50 mg PO DAILY anxiety/depression 09/05/24 #90 tabs hydrocodone 10 mg-acetaminophen 1 tab PO TID PRN pain 30 days #90 10/26/24 325 mg tablet tabs Allergies Allergy/AdvReac Type Severity Reaction Status Date / Time gabapentin AdvReac brain fog Verified 08/08/24 14:56 pregabalin (From Lyrica) AdvReac balance Verified 08/08/24 14:56 issues PFSH ED PFSH: Family History Mother Heart disease Hyperlipidemia Hypertension Stroke Brother Hypertension Hyperlipidemia Heart disease Diabetes Stroke Thyroid disease Grandmother Colon cancer Social History Smoking and tobacco/nicotine status: never used tobacco/nicotine Alcohol intake: never Substance/Drug Use: never Course Vital Signs: Vital signs: Vital Signs Temperature 98.1 F 11/20/24 10:42 Pulse Rate 70 11/20/24 10:42 Respiratory Rate 18 11/20/24 10:42 Blood Pressure 159/77 11/20/24 10:42 Pulse Oximetry 100 11/20/24 10:42 Oxygen Delivery Me thod Room Air 11/20/24 10:42 Discharge Plan Discharge Condition: Stable Prescriptions: No Action triamcinolone acetonide 0.1 % ointment 1 applic topical TID solifenacin [Vesicare] 10 mg tablet 10 mg PO DAILY Qty: 30 3RF (DME) insulin syringe-needle U-100 [Advocate Syringes] 1 mL 30 gauge x 5/16 syringe See Rx Instructions .Route Qty: 10 0RF Rx Instructions: As directed cyanocobalamin (vitamin B-12) 1,000 mcg/mL solution See Rx Instructions IM ONCE Qty: 10 1RF Rx Instructions: inject 1000 units weekly x 4 then monthly intramuscularly once; (DME) needles/syringes for b12 injection 27 See Rx Instructions .Route .MEDSUPPLY Qty: 10 0RF Rx Instructions: As directed ferrous sulfate 324 mg (65 mg iron) tablet,delayed release (DR/EC) 324 mg PO DAILY Qty: 30 3RF celecoxib [Celebrex] 200 mg capsule 200 mg PO DAILY Qty: 30 5RF lorazepam 1 mg tablet 1 mg PO TID PRN (Reason: anxiety) Qty: 90 5RF sertraline 50 mg tablet 50 mg PO DAILY Qty: 90 1RF hydrocodone-acetaminophen 10-325 mg tablet 1 tab PO TID PRN (Reason: pain) 30 Days Qty: 90 0RF Referrals: Adi Hall DO [Primary Care Provider, Family Practice] Print Language: Serbian Coding Level of Care Code ED Hydraulic Governor Assembler for Lorna Sidhu
[2024-11-20 10:50] VITALS: O2SAT 100
--- NOTE | 2024-11-20 10:54 | XRR_ITS ---
PROCEDURE INFORMATION: Exam: XR Left Hip Exam date and time: 11/20/2024 11:24 AM Age: 69 years old Clinical indication: Hip pain; Left hip; Prior surgery; Surgery date: 6+ months; Surgery type: Both hips; Additional info: Pain; One view pelvis too please TECHNIQUE: Imaging protocol: Radiologic exam of the left hip. Views: 2 or 3 views hip with pelvis when performed. COMPARISON: No relevant prior studies available. FINDINGS: Bones/joints: A complete left hip prosthesis is intact. No acute fracture or malalignment. Healed fracture deformity involves the left pubic symphysis and left superior pubic ramus. Well corticated dystrophic calcification lies superior to the left greater trochanter. The AP view of a right hip hemiarthroplasty is unremarkable. Degenerative disc disease is noted at L4-L5. Soft tissues: Unremarkable. Vasculature: Femoral artery calcification is noted bilaterally. XR/XR hip LT 2-3V wo/w pel* [id number] IMPRESSION: 1. Intact bilateral hip replacements. 2. Moderate dystrophic soft tissue calcification superior to the left greater trochanter.
--- NOTE | 2024-11-20 10:55 | W.ED.EXTPRO ---
HPI - Extremity Problem General: Chief complaint: Back Pain/Injury Stated complaint: lower back pain, L hip pain Time Seen by Provider: 11/20/24 10:19 Source: patient Mode of arrival: wheelchair Limitations: no limitations History of Present Illness: The patient is a 69-year-old female presents to ED today with a complaint of lower back and mainly left hip pain over the past 3 days. Patient thinks it might be related to a bed that she moved to try to vacuum underneath it. She states by that evening she had significant left hip pain. She has had a left hip arthroplasty several years ago but has not had much issue with the hip. She does report chronic neck and back pain. She sees her primary care provider for this and takes Celebrex as well as Hydrocodone 10 mg multiple times daily as well as Lorazepam for muscle spasms. Patient has not had any direct injury or trauma. No significant falls. She denies saddle anesthesia or bowel or bladder dysfunction. MD Complaint: joint pain (L hip) Onset (ago): day(s) Pain Consistency: constant Location: left and lower extremity (hip) Severity scale (1-10): 10 Radiation: none Relieving factors: immobilization Exacerbating factors: range of motion, weight bearing, walking and palpation Associated symptoms: Deny chest pain, fever(s) or rash Related Data Home Medications ?Medication ?Instructions ?Recorded ?Confirmed cyanocobalamin (vitamin B-12) 1,000 mcg IM .EVERY OTHER MONTH 11/20/24 11/20/24 1,000 mcg/mL injection solution Previous Rx's ?Medication ?Instructions ?Recorded insulin syringe-needle U-100 1 mL #10 ea 02/11/22 30 gauge x 5/16 (Advocate Syringes) needles/syringes for b12 injection #10 ea 05/29/23 ferrous sulfate 324 mg (65 mg 324 mg PO DAILY anemia #30 tabs 09/25/23 iron) tablet,delayed release celecoxib 200 mg capsule (Celebrex) 200 mg PO DAILY somatic 01/04/24 inflammatory pain #30 caps lorazepam 1 mg tablet 1 mg PO TID PRN anxiety #90 tabs 06/06/24 solifenacin 10 mg tablet (Vesicare) 10 mg PO DAILY #30 tabs 08/08/24 sertraline 50 mg tablet 50 mg PO DAILY anxiety/depression 09/05/24 #90 tabs hydrocodone 10 mg-acetaminophen 1 tab PO TID PRN pain 30 days #90 10/26/24 325 mg tablet tabs prednisone 10 mg tablet 10 mg PO DAILY 6 days #20 tabs 11/20/24 Allergies Allergy/AdvReac Type Severity Reaction Status Date / Time gabapentin AdvReac brain fog Verified 08/08/24 14:56 pregabalin (From Lyrica) AdvReac balance Verified 08/08/24 14:56 issues Review of Systems Const: Denies: fever(s), chills, body aches, fatigue or malaise Card: Denies: chest pain Resp: Denies: dyspnea GI: Denies: abdominal pain : Denies: flank pain, dysuria or hematuria Musc: Reports: back pain and joint pain (L hip); Denies: neck pain, extremity pain, extremity swelling, joint swelling, joint redness or joint warmth Skin/Breast: Denies: rash Neuro: Denies: headache(s), numbness in extremities, weakness in extremities or sensory changes PFSH ED PFSH: Family History Mother Heart disease Hyperlipidemia Hypertension Stroke Brother Hypertension Hyperlipidemia Heart disease Diabetes Stroke Thyroid disease Grandmother Colon cancer Social History Smoking and tobacco/nicotine status: never used tobacco/nicotine Alcohol intake: never Substance/Drug Use: never Physical Exam Const: COMMON NORMALS: no acute distress, average body habitus, patient oriented x3, no limitations, healthy appearing, alert and well nourished GI: COMMON NORMALS: Normal to inspection, nondistended, normoactive bowel sounds present, Soft to palpation, non-tender and no masses PALPATION: Yes Soft to palpation : COMMON NORMALS: Yes no CVA tenderness BLADDER/KIDNEY EXAM: Yes no CVA tenderness Back/Pelvis: COMMON NORMALS: no CVA tenderness, thoracic and lumbar spine normal to inspection and straight leg raise negative bilaterally THORACIC SPINE/UPPER BACK: No thoracic spinal tenderness LUMBAR SPINE/LOWER BACK: No lumbar spinal tenderness PELVIS: Yes buttock abnormal Buttock abnormal laterality: left Left buttock abnormal details: tenderness and Yes sciatic notch tenderness on the left SACROILIAC JOINTS: Yes SI joint(s) abnormal SI joint details: tender to palpation SACRUM: no tenderness COCCYX: no tenderness Extremity: COMMON NORMALS: normal to inspection, capillary refill normal, no joint enlargement, no clubbing, cyanosis or edema, no calf tenderness and no pedal edema GENERAL: Yes normal exam except as noted LEFT LOWER EXTREMITY: Yes hip joint Left hip: Yes inspection (normal gross inspection) and Yes neurovascular exam (normal) Neuro: COMMON NORMALS: patient oriented x3, moves all extremities, no focal motor deficits and no sensory deficits noted SENSORIUM/ORIENTATION: Yes alert Skin: COMMON NORMALS: no rashes or lesions noted GENERAL SKIN EXAM: no rashes or lesions noted Course Vital Signs: Vital signs: Vital Signs Temperature 98.1 F 11/20/24 10:42 Pulse Rate 61 11/20/24 12:17 Respiratory Rate 17 11/20/24 12:17 Blood Pressure 150/83 11/20/24 12:17 Pulse Oximetry 96 11/20/24 12:17 Oxygen Delivery Me thod Room Air 11/20/24 10:50 MDM - Extremity (Nontraumatic) Medical Decision Making Patient feeling better after medications given here. She was ambulatory with the help of a walker. Patient already takes an anti-inflammatory as well as chronic opiates at home. She takes lorazepam reportedly for muscle spasms. At this point we will place her on a prednisone taper and recommend she follow-up with primary care. XR of the left hip obtained with chronic findings. Medical Records I reviewed the patient's medical records. XR interpretation done by ED provider, pending radiology final review Discharge Plan Discharge Patient Disposition: Home Clinical Impression: Acute pain of left hip Condition: Stable Prescriptions: New prednisone 10 mg tablet 10 mg PO DAILY 6 Days Qty: 20 0RF Rx Instructions: Take 5 tabs on day 1-2, 4 tabs on day 3, 3 tabs on day 4, 2 tabs on day 5, and 1 tab on day 6 No Action solifenacin [Vesicare] 10 mg tablet 10 mg PO DAILY Qty: 30 3RF (DME) insulin syringe-needle U-100 [Advocate Syringes] 1 mL 30 gauge x 5/16 syringe See Rx Instructions .Route Qty: 10 0RF Rx Instructions: As directed (DME) needles/syringes for b12 injection 27 See Rx Instructions .Route .MEDSUPPLY Qty: 10 0RF Rx Instructions: As directed ferrous sulfate 324 mg (65 mg iron) tablet,delayed release (DR/EC) 324 mg PO DAILY Qty: 30 3RF celecoxib [Celebrex] 200 mg capsule 200 mg PO DAILY Qty: 30 5RF lorazepam 1 mg tablet 1 mg PO TID PRN (Reason: anxiety) Qty: 90 5RF sertraline 50 mg tablet 50 mg PO DAILY Qty: 90 1RF hydrocodone-acetaminophen 10-325 mg tablet 1 tab PO TID PRN (Reason: pain) 30 Days Qty: 90 0RF cyanocobalamin (vitamin B-12) 1,000 mcg/mL solution 1,000 mcg IM .EVERY OTHER MONTH Discharge Orders: Discharge ED (Routine); Ordered 11/20/24 Ordered By: Maria Ines Gan Referrals: Adi Hall DO [Primary Care Provider, Family Practice] Patient Instructions: Patient Portal & Jorge Instructions Activity Restrictions/Additional Instructions: As we discussed, please follow-up with primary care this week for reevaluation and further treatment if symptoms are not improving with medications and continued conservative therapy. You may return to the emergency department at anytime for worsening or uncontrollable pain, inability to ambulate, severe back pain, or any other concerns you may have. I hope you begin to feel better soon. Print Language: Albanian Coding Level of Care Code ED Gang Hemstitching Machine Operator for Lorna Sidhu
[2024-11-20 11:12] VITALS: RESP 17; O2SAT 98
[2024-11-20] MEDS: morphine 4 mg/mL SDV 1 mL IVP (11:12)
[2024-11-20] MEDS: orphenadrine 30 mg/mL Inj 2 mL 60 MG IVP (11:13)
[2024-11-20 12:17] VITALS: BP 150/83; PULSE 61; RESP 17; O2SAT 96
== END 2024-11-20 12:18 | disposition home or self-care (01) ==
PROVIDERS: Emergency Provider Physician Assistant; PCP Family Medicine
DX: M25.552 Pain in left hip (principal)
CPT/HCPCS: 73502; 96374; 96375; 99284; J1100; J1885; J2270; J2360